=== PATIENT | female | born 1965 | race Hispanic/Latino ===

== ENCOUNTER 2017-11-19 07:36 | Day surgery (SDC) | payer OTHER ==
[~2017-11-19] VITALS: Ht 152.4 cm; Wt 82.6 kg
[~2017-11-19 07:36] MED LIST: CALC500T13 PO; FOLI1TAB15 PO; GABA-531 PO; HYDR200T82 PO; IBUP-2077 PO; METF500T6 PO; SITA25TA5 PO; SODIUM CHLORIDE 0.9% 1000ML 1,000 ML IV ONE; TOFA11TA PO; UBID50TA3 PO; fioricet PO; multivitamin PO
[2017-11-19 08:14] VITALS: BP 138/62
[2017-11-19] MEDS ORDERED: FENTANYL CITRATE PF 50 MCG/1 ML 2ML VIAL ONE (09:14)
[2017-11-19] MEDS ORDERED: PROPOFOL 10 MG/ML 20ML VIAL IV ONE (09:14)
[2017-11-19 09:39] VITALS: BP 116/64
== END 2017-11-19 10:14 | disposition home or self-care (01) ==
LOC: DAH 07:36
PROVIDERS: ATTEND Internal Medicine
DX: K64.1 Second degree hemorrhoids (principal); K57.30 Diverticulosis of large intestine without perforation or abscess without bleeding; K29.50 Unspecified chronic gastritis without bleeding; Z80.0 Family history of malignant neoplasm of digestive organs; K21.0 Gastro-esophageal reflux disease with esophagitis; K26.9 Duodenal ulcer, unspecified as acute or chronic, without hemorrhage or perforation; E11.9 Type 2 diabetes mellitus without complications; M19.90 Unspecified osteoarthritis, unspecified site; Z90.710 Acquired absence of both cervix and uterus; Z68.34 Body mass index [BMI] 34.0-34.9, adult; Z79.84 Long term (current) use of oral hypoglycemic drugs; Z79.899 Other long term (current) drug therapy
CPT/HCPCS: 36415; 43239; 45378; 82948 ×2; 87520; A4606; J2704; J3010; J7030

== ENCOUNTER 2022-01-28 06:58 | Day surgery (SDC) | payer OTHER ==
[2022-01-25 09:05] LABS: BASOPHILS % (AUTO) 0.6 % (0.0-5.0); EOSINOPHILS % (AUTO) 1.1 % (0.0-8.0); HEMATOCRIT 47.6 % (36-48); MEAN CORPUSCULAR HEMOGLOBIN 31.2 pg (27.0-33.0); MEAN CORPUSCULAR HGB CONC 34.2 g/dL (32.0-36.0); MONOCYTES % (AUTO) 8.3 % (3.0-13.0); NEUTROPHILS % (AUTO) 72.5 % (40.0-77.0); PLATELET COUNT (AUTO) 224 K/uL (130-400); RED BLOOD CELL COUNT(AUTO) 5.23 MIL/uL (4.00-5.50); RED CELL DISTRIBUTION WIDTH 13.4 % (11.0-15.5); WHITE BLOOD COUNT (AUTO) 6.6 K/uL (4.8-10.8)
[2022-01-25 10:05] LABS: HEMOGLOBIN A1C 6.1 % (4.0-6.0)
[2022-01-25 10:15] LABS: ALANINE AMINOTRANSFERASE 29 U/L (12-78); ALBUMIN 4.3 g/dL (3.5-5.0); ASPARTATE AMINOTRANSFERASE 19 U/L (10-37); CARBON DIOXIDE 28 mmol/L (21-32); CHLORIDE 102 mmol/L (101-111); CHOLESTEROL 234 mg/dL (<200); CREATININE 0.8 mg/dL (0.5-1.5); GLOMERULAR FILTR. RATE CALC 79 mL/min (>60); GLUCOSE,RANDOM 120 mg/dL (70-105); HDL CHOLESTEROL 78 mg/dL (35-85); LDL DIRECT 134 mg/dL (0-99); SODIUM SERUM 141 mmol/L (136-145); THYROID STIMULATING HORMONE 1.71 uIU/mL (0.36-3.74); TOTAL PROTEIN, SERUM 7.8 g/dL (6.0-8.3); TRIGLYCERIDES 104 mg/dL (30-200); UREA NITROGEN, BLOOD 16 mg/dL (7-18)
[2022-01-25 10:22] LABS: T4 (THYROXINE) 10.9 ug/dL (4.7-13.3)
[2022-01-28] VITALS (10 sets, daily range): BP systolic 104–134; BP diastolic 50–96
[~2022-01-28] VITALS: Ht 152.4 cm; Wt 79.4 kg
[~2022-01-28 06:58] MED LIST changes: +BARI2TAB PO; -CALC500T13 PO; -GABA-531 PO; -IBUP-2077 PO; -METF500T6 PO; -SITA25TA5 PO; -SODIUM CHLORIDE 0.9% 1000ML 1,000 ML IV ONE; -TOFA11TA PO; +VITAMIN B 12 PO; +VITAMIN D PO; +[UNRECOGNIZED DRUG - CODE] PO; -fioricet PO; -multivitamin PO
[2022-01-28] MEDS ORDERED: 0.9%NACL 1000ML 1,000 ML IV ONE (07:32)
== END 2022-01-28 09:10 | disposition home or self-care (01) ==
LOC: ENDO 06:58 → DAH 06:58 → ENDO 09:10
PROVIDERS: ATTEND Surgery
DX: K21.9 Gastro-esophageal reflux disease without esophagitis (principal); E66.01 Morbid (severe) obesity due to excess calories; Z79.01 Long term (current) use of anticoagulants; Z79.899 Other long term (current) drug therapy; Z90.710 Acquired absence of both cervix and uterus; Z98.890 Other specified postprocedural states; Z83.3 Family history of diabetes mellitus; Z82.49 Family history of ischemic heart disease and other diseases of the circulatory system; Z80.9 Family history of malignant neoplasm, unspecified; Z68.34 Body mass index [BMI] 34.0-34.9, adult
CPT/HCPCS: 71045; 87635; 80061; 83036; 84443; 84436; 83540; 83735; 80053; 85025; 82306; 84446; 84207; 84425; 82607; 84481; 82746; 84590; 84630; 36415; 93005; 43235; 82948; C9803; A6260; J7030; A4620; A4215 ×2; A4223; A4222; A4221; A4606

== ENCOUNTER → 2022-02-15 | Outpatient (CLI) | payer OTHER | END | disposition home or self-care (01) | LOC: DTH 11:50 | PROVIDERS: ATTEND Surgery | DX: Z71.3 Dietary counseling and surveillance (principal); E78.00 Pure hypercholesterolemia, unspecified; K76.0 Fatty (change of) liver, not elsewhere classified; K21.9 Gastro-esophageal reflux disease without esophagitis; E66.09 Other obesity due to excess calories; Z68.31 Body mass index [BMI] 31.0-31.9, adult | CPT/HCPCS: 97802 ==

== ENCOUNTER 2022-02-28 14:00 | Inpatient (IN) | payer OTHER ==
[~2022-02-28] VITALS: Ht 154.9 cm; Wt 80.2 kg
[~2022-02-28 14:00] MED LIST changes: -UBID50TA3 PO; -VITAMIN D PO; -[UNRECOGNIZED DRUG - CODE] PO
[2022-03-01 09:41] LABS: BASOPHILS % (AUTO) 0.6 % (0.0-5.0); EOSINOPHILS % (AUTO) 0.8 % (0.0-8.0); HEMATOCRIT 47.4 % (36-48); LYMPHOCYTES % (AUTO) 21.1 % (21.0-51.0); MEAN CORPUSCULAR HEMOGLOBIN 31.5 pg (27.0-33.0); MEAN CORPUSCULAR VOLUME 92.8 fL (79-99); MONOCYTES % (AUTO) 9.3 % (3.0-13.0); NEUTROPHILS % (AUTO) 67.6 % (40.0-77.0); PLATELET COUNT (AUTO) 244 K/uL (130-400); RED BLOOD CELL COUNT(AUTO) 5.11 MIL/uL (4.00-5.50); RED CELL DISTRIBUTION WIDTH 13.8 % (11.0-15.5); WHITE BLOOD COUNT (AUTO) 6.5 K/uL (4.8-10.8)
[2022-03-01 09:48] VITALS: BP 143/68
[2022-03-01 09:54] LABS: CREATININE 0.8 mg/dL (0.5-1.5)
[2022-03-01 09:56] LABS: INR 0.99 (0.85-1.15); PROTHROMBIN TIME 10.8 SEC (9.6-11.6)
[2022-03-01 09:57] LABS: PARTIAL THROMBOPLASTIN TIME 31.3 SEC (26.3-35.5)
[2022-03-01] MEDS ORDERED: CEFAZOLIN SODIUM 1 GM VIAL IVP SCH (10:00)
[2022-03-01] MEDS ORDERED: MVIT PO (12:41)
[2022-03-01] MEDS ORDERED: FISH1CAP50 PO (12:42)
[2022-03-04] VITALS (26 sets, daily range): BP systolic 117–171; BP diastolic 52–82
[2022-03-04] MEDS ORDERED: 0.9%NACL 1000ML 1,000 ML IV ONE (06:23)
[2022-03-04] MEDS ORDERED: SCOPOLAMINE HYDROBROMIDE 1 EACH ADH..PATCH TD ONE (07:39)
[2022-03-04] MEDS ORDERED: DEXAMETHASONE SOD PHOSPHATE 10MG/ML 1ML VIAL ONE ×2 (07:48→08:18)
[2022-03-04] MEDS ORDERED: GLYCOPYRROLATE 1 MG/5 ML SYRINGE ONE (07:48)
[2022-03-04] MEDS ORDERED: MIDAZOLAM HCL 1 MG/ML 2ML VIAL ONE (07:48)
[2022-03-04] MEDS ORDERED: PROPOFOL 10 MG/ML 20ML VIAL IV ONE (07:48)
[2022-03-04] MEDS ORDERED: ONDANSETRON 4MG INJ ONE (07:48)
[2022-03-04] MEDS ORDERED: SUCCINYLCHOLINE 200MG/10ML SYR ONE (07:48)
[2022-03-04] MEDS ORDERED: NEOSTIGMINE 5MG/5ML SYR IV ONE (07:48)
[2022-03-04] MEDS ORDERED: LIDOCAINE PF 100MG/5ML (2%) SYRINGE 5ML ONE (07:48)
[2022-03-04] MEDS ORDERED: ROCURONIUM 10MG/1ML SYR 10 MG/ML ML ONE (07:49)
[2022-03-04] MEDS ORDERED: FENTANYL CITRATE PF 50 MCG/1 ML 2ML VIAL ONE (07:49)
[2022-03-04] MEDS ORDERED: SCOPOLAMINE HYDROBROMIDE 1 EACH ADH..PATCH TD SCH (08:00)
[2022-03-04] MEDS ORDERED: CEFAZOLIN SODIUM 2 GM VIAL IV ONE (08:25)
[2022-03-04] MEDS ORDERED: PHENYLEPHRINE HCL 10 MG/ML 1ML VIAL IV ONE (08:31)
[2022-03-04] MEDS ORDERED: METOCLOPRAMIDE 10 MG/2 ML VIAL ONE (09:00)
[2022-03-04] MEDS ORDERED: KETOROLAC 30MG VIAL (30MG/ML) ONE (09:00)
[2022-03-04] MEDS ORDERED: MEPERIDINE-PF 25 MG/ML SYG ONE (09:41)
[2022-03-04] MEDS: KETOROLAC 30MG VIAL (30MG/ML) IVP PRN ×2 (09:55→21:04)
[2022-03-04] MEDS ORDERED: ONDANSETRON 4MG INJ IVP PRN (10:00)
[2022-03-04] MEDS: LACTATED RINGERS 1000ML 1,000 ML IV SCH ×2 (10:58→21:46)
[2022-03-04] MEDS: CEFAZOLIN SODIUM 1 GM VIAL IVP SCH ×2 (10:59→18:27)
[2022-03-04] MEDS: MORPHINE 5 MG/ML VIAL (5MG OR GREATER DOSE) IVP PRN ×2 (15:42→21:50)
[2022-03-04] MEDS: FAMOTIDINE 20MG VIAL IV SCH (21:04)
[2022-03-04] MEDS: ENOXAPARIN SODIUM 30 MG/0.3 ML SQ SCH (21:04)
[2022-03-05] VITALS: BP 121/61
[2022-03-05] MEDS: LACTATED RINGERS 1000ML 1,000 ML IV SCH ×2 (01:08→05:12)
[2022-03-05 04:00] VITALS: BP 112/82
[2022-03-05 04:14] LABS: BASOPHILS % (AUTO) 0.2 % (0.0-5.0); HEMATOCRIT 39.5 % (36-48); LYMPHOCYTES % (AUTO) 10.3 % (21.0-51.0); MEAN CORPUSCULAR HEMOGLOBIN 31.5 pg (27.0-33.0); MEAN CORPUSCULAR HGB CONC 33.9 g/dL (32.0-36.0); MEAN CORPUSCULAR VOLUME 92.9 fL (79-99); MONOCYTES % (AUTO) 9.9 % (3.0-13.0); NEUTROPHILS % (AUTO) 79.1 % (40.0-77.0); PLATELET COUNT (AUTO) 224 K/uL (130-400); RED BLOOD CELL COUNT(AUTO) 4.25 MIL/uL (4.00-5.50); RED CELL DISTRIBUTION WIDTH 13.7 % (11.0-15.5); WHITE BLOOD COUNT (AUTO) 10.4 K/uL (4.8-10.8)
[2022-03-05 04:23] LABS: CREATININE 0.8 mg/dL (0.5-1.5); POTASSIUM 4.2 mmol/L (3.5-5.1)
[2022-03-05] MEDS: KETOROLAC 30MG VIAL (30MG/ML) IVP PRN ×3 (05:16→17:48)
[2022-03-05 07:30] VITALS: BP 99/52
[2022-03-05] MEDS: FAMOTIDINE 20MG VIAL IV SCH (08:24)
[2022-03-05] MEDS: ENOXAPARIN SODIUM 30 MG/0.3 ML SQ SCH (08:33)
[2022-03-05 11:00] VITALS: BP 105/74
[2022-03-05 16:00] VITALS: BP 103/49
== END 2022-03-05 17:22 | disposition home or self-care (01) | DRG 621 ==
LOC: INTOOBSV 03-04 06:24 → DAHIP 03-04 06:24 → OBSVTOIN 03-04 06:24 → 4BH 03-04 10:35
PROVIDERS: ADMIT Surgery; ATTEND Surgery
PROC: 0DB64Z3 Excision of Stomach, Percutaneous Endoscopic Approach, Vertical (ICD-10-PCS; principal; 2022-03-04 08:00)
DX: E66.01 Morbid (severe) obesity due to excess calories (principal); Z68.33 Body mass index [BMI] 33.0-33.9, adult; Z20.822 Contact with and (suspected) exposure to COVID-19
CPT/HCPCS: 36415; 71045; 80048; 82948; 85025; 85610; 85730; 86850; 86900; 86901; 87426; 93005; G0378; J0330; J0690; J1100; J1650; J1885; J2001; J2175; J2250; J2270; J2370; J2405; J2704; J2710; J2765; J3010; J3490; J7030; J7120

== ENCOUNTER → 2022-04-16 | Outpatient (CLI) | payer OTHER ==
[~2022-04-16] MED LIST changes: +FISH1CAP50 PO; +MVIT PO
== END | disposition home or self-care (01) ==
LOC: RAH 08:41
PROVIDERS: ATTEND Surgery
DX: K21.9 Gastro-esophageal reflux disease without esophagitis (principal); R10.9 Unspecified abdominal pain
CPT/HCPCS: 76705

== ENCOUNTER → 2023-05-12 | Outpatient (CLI) | payer OTHER ==
[~2023-05-12] MED LIST changes: +IOHEXOL 350 MG/ML 100ML INFUS..BTL IV ONE
== END | disposition home or self-care (01) ==
LOC: RAH 13:54
PROVIDERS: ATTEND Internal Medicine
DX: R07.9 Chest pain, unspecified (principal)
CPT/HCPCS: 75574; Q9967

== ENCOUNTER 2024-05-21 10:38 | Day surgery (SDC) | payer OTHER ==
[~2024-05-21] VITALS: Ht 154.9 cm; Wt 70.3 kg
[2024-05-21] VITALS (11 sets, daily range): BP systolic 93–135; BP diastolic 45–69; PULSE 66–83; RESP 15–17; TEMP 96.7–97.6
[~2024-05-21 10:38] MED LIST changes: -IOHEXOL 350 MG/ML 100ML INFUS..BTL IV ONE
[2024-05-21] MEDS: 0.9%NACL 1000ML 1,000 ML IV ONE (12:05)
[2024-05-21] MEDS ORDERED: ASPI-1005 PO (12:09)
[2024-05-21] MEDS ORDERED: ATOR10 PO (12:09)
[2024-05-21] MEDS ORDERED: proPOFol 10 MG/ML 20ML VIAL IV ONE ×2 (13:46→14:09)
[2024-05-21] MEDS ORDERED: LIDOCAINE PF 100MG/5ML (2%) SYRINGE 5ML ONE (13:47)
--- NOTE | 2024-05-21 15:42 | NUR ---
Full and complete discharge instructions given to Patient and Daughter both verbally and in writing. All questions answered. Both voiced understanding to GI post procedures precautions and diet. PIV removed with catheter tip intact. Patient ambulated to bathroom and voided large amount.Patient denies c/o pain or discomfort. Tolerated ice chips and sips or water. W/C to POV with Family.
== END 2024-05-21 15:40 | disposition home or self-care (01) ==
LOC: DAH 10:38 → ENDO 10:38
PROVIDERS: ATTEND Internal Medicine
DX: K59.01 Slow transit constipation (principal); K29.50 Unspecified chronic gastritis without bleeding; K57.30 Diverticulosis of large intestine without perforation or abscess without bleeding; K31.89 Other diseases of stomach and duodenum; K64.1 Second degree hemorrhoids; K44.9 Diaphragmatic hernia without obstruction or gangrene; K20.90 Esophagitis, unspecified without bleeding; R10.10 Upper abdominal pain, unspecified; E11.9 Type 2 diabetes mellitus without complications; Z80.0 Family history of malignant neoplasm of digestive organs; M19.90 Unspecified osteoarthritis, unspecified site; Z90.710 Acquired absence of both cervix and uterus; Z98.84 Bariatric surgery status; Z79.82 Long term (current) use of aspirin; Z79.899 Other long term (current) drug therapy
CPT/HCPCS: 45378; 43239; J7030; J2003; J2704 ×2; A4620; A4215 ×2; A4223; A4657; A4222; A4221; A4663; A4606; J3490